=== PATIENT | female | born 1930 | race Caucasian/White ===

== ENCOUNTER 2018-03-07 09:46 | Emergency (ER) | payer MEDICARE ==
--- OUTSIDE RECORDS SUMMARY | 2018-03-07 09:58 | XMS REPORT ---
:1930 External Reference #:[id number] Author Organization [facility] Address [address] [place] [address] Phone [phone] Care Team Providers Name Role Phone Grady Rios M.D. Care Team Information [employer] Sewer [employer]oes Unavailable Grady Rios M.D. Primary Care Physician Unavailable Payers Type Date Identification Numbers Payment Provider Subscriber Medicare Primary Effective: Policy Number: [employer] [place] Fariba Patel 2014 [id number] PayID: [id number] [address] [facility] [place] [address] Medigap Part B Effective: Policy Number: [facility] Fariba Patel 2014 [id number] Care Options PayID: [id number] [place] [address] Problems Date Description Provider Status Onset: 04/12/2015 Benign essential hypertension Grady Rios M.D. Active Onset: 04/12/2015 Type 2 diabetes mellitus Grady Rios M.D. Active Onset: 04/12/2015 Hypothyroidism Grady Rios M.D. Active Onset: 04/12/2015 Allergic rhinitis Grady Rios M.D. Active Onset: 04/12/2015 Gastroesophageal reflux disease Grady Rios M.D. Active Onset: 11/08/2015 Chronic pulmonary heart disease Grady Rios M.D. Active Family History Date Family Member(s) Problem(s) Comments Father Diabetes Mellitus, II Mother Breast Cancer Social History Type Date Description Comments Marital Status Legal Status: 2007 Lives With Alone Occupation Retired Occupation Grounds Cleaner Cigarette Use Former Cigarette Smoker quit 30s 1ppd x 10 years ETOH Use Consumes liquor once daily Smoking Patient is a former smoker Allergies, Adverse Reactions, Alerts Date Description Reaction Status Severity Comments 04/12/2015 Sulfa hives active 04/12/2015 Penicillin hives active 04/12/2015 Erythromycin GI upset active 04/12/2015 Daypro hives active 04/12/2015 Neosporin hives active 04/12/2015 Bacitracin hives active 04/12/2015 Latex active unsure of reaction 07/05/2015 Contrast Dye hives active 06/13/2017 FD&C Red 40 Elder Urticaria active Medications Medication Date Status Form Strength Qnty SIG Indications Ordering Provider Torsemide Active Tablets 20mg 90tabs 2 by mouth I27.81 Grady 8 every day Colleen Rios I10 R60.9 Gabapentin 01/28/2018 Active Capsules 100mg 90caps 2 by mouth M54.2 Grady three Gabriel, times a M.DEva day Freestyle System 01/28/2018 Active Kit 1units test blood E11.9 Grady sugar once Gabriel, a day M.Domi dx:e11.9 Spironolactone 07/31/2017 Active Tablets 25mg 90tabs 1 by mouth Grady every day Colleen Rios Pen Leblanc 05/15/2016 Active Misc 31G X 5 1Box for use Grady 16" mm once daily Gabriel with Colleen murillo pen - dx: e11.9- last seen 07/31/17 Levemir 05/15/2016 Active Solution 100Unit 30ml Inject 30 Grady Flextouch Pen-Inject /ML Units AT Gabriel, Bedtime M.Domi Novofine 07/05/2015 Active Misc 32G X 6 120unit 1 unit E11.9 Grady mm s injection Gabriel, every day MBren Freestyle 07/05/2015 Active Misc 90units use once E11.9 Grady Lancets daily Colleen Rios Freestyle Lite 07/05/2015 Active Strip 100unit test every E11.9 Grady Test s day Colleen Rios Lancet Device 05/24/2015 Active Misc 15units 1 unit E11.9 Grady With Ejector Colleen Rios Aspirin Ec Active Tablets DR 81mg 1 by mouth Unknown every day Atenolol Active Tablets 50mg 90tabs 1 by mouth Grady every day Leslie Rios. Levothyroxine Active Tablets 112mcg 90tabs Take 1 E03.8 Grady Sodium Tablet By Saunemin, Mouth M.D. Every Day Tumeric Active 1000MG Unknown Latanoprost Active Solution 0.005% one drop Unknown each eye every day Tramadol HCL 10/03/2017 - Hx Tablets 50mg 30tabs take 1/2 M54.2 Benita L. 01/28/2018 to 2 Cirilo, tablets by M.D. mouth every 4 to 6 hours as needed for pain. Meloxicam 10/03/2017 - Hx Tablets 7.5mg 60tabs take 1 Benita L. 01/28/2018 tablet 1 Cirilo, to 2 times M.D. a day with food in your stomach. Occupational 10/03/2017 - Hx cervicalgi M54.2 Benita L. Therapy 01/28/2018 a, muscle Cirilo, spasm, and M.D. altered gait Ciprofloxacin 08/05/2017 - Hx Tablets 250mg 6tabs 1 tab Grady HCL 10/03/2017 twice a Saunemin, day x 3 M.D. 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 Walker With 3 05/16/2017 - Hx use as M15.0 Grady Wheels 10/03/2017 directed kathryn Rios M.DEva 05/16/17 Nitrofurantoin 08/24/2016 - Hx Capsules 100mg 14caps 2 by mouth Roxie Monohyd Macro 09/25/2016 daily x 7 Bonifacio, days MOBILE DEVICE DEVELOPER Ciprofloxacin 08/22/2016 - Hx Tablets 250mg 6tabs 1 tab N39.0 Grady HCL 08/29/2016 twice a Saunemin, day x 3 M.D. days Ranitidine HCL 06/20/2016 - Hx Tablets 150mg 60tabs 1 tab by K21.9 Grady 08/21/2016 mouth Saunemin, twice a M.D. day Levofloxacin 11/29/2015 - Hx Tablets 250mg 7tabs 1 by mouth J20.9 Nani 12/06/2015 daily for Brown, TOE CLOSING MACHINE TENDER 7 days Proair HFA 11/29/2015 - Hx Aerosol 108(90B 1units 2 puffs J20.9 [facility] 06/13/2017 ase) every 4 Saunemin, mcg/Act hours as M.D. needed for shortness of breath or wheezing Levofloxacin 09/07/2015 - Hx Tablets 250mg 14tabs 2 by mouth R05 Candie 11/08/2015 every day Jaylin, for 4 days MOBILE DEVICE DEVELOPER then 1 po qd for 6d Lasix 08/22/2015 - Hx Tablets 40mg 90tabs Take 1 I27.81 Grady 01/28/2018 Tablet By Saunemin, Mouth M.D. Every Day as Needed For Edema I10 R60.9 Ciprofloxacin HCL 06/27/2015 - Hx Tablets 250mg 6tabs 1 tab twice Grady 07/05/2015 a day x 3 , days M.D. Lasix 05/31/2015 - Hx Tablets 40mg 30tabs 1 tab by 782 Grady 06/07/2015 mouth every .3 Saunemin, day as M.D. needed edema Ibuprofen 05/24/2015 - Hx Tablets 600mg 30tabs 1 tab by 840 Grady 07/05/2015 mouth every .9 Saunemin, 6 hours as M.D. needed pain. take with food Cyclobenzaprine 05/24/2015 - Hx Tablets 5mg 30tabs 1/2-1 tablet 840 Grady HCL 07/05/2015 every night .9 Saunemin, at bedtime M.D. as needed Metformin HCL 05/18/2015 - Hx Tablets 1000mg 1 by mouth Hailey 05/24/2015 once a day Nathalia Hess Furosemide 05/18/2015 - Hx Tablets 20mg 7tabs 2 by mouth Hailey 05/24/2015 every day Nathalia Hess Atenolol 05/18/2015 - Hx Tablets 50mg 7tabs 1 po qd Hailey 05/24/2015 Nathalia Hess Atenolol-Chlorthal - Hx Tablets 50-25mg 90tabs 1 by mouth I10 Grady idone 05/15/2016 every day Saunemin, M.D. Metformin HCL - Hx Tablets 1000mg 1 by mouth Unknown 05/18/2015 twice a day Lantus Solostar - Hx Solution 100Unit/ 45ml 25 units E11 Grady 06/20/2016 Pen-Inject ML every day .9 Colleen Rios Flunisolide - Hx Solution 25mcg/Ac 2 sprays Unknown 05/24/2015 t each nostril (0.025%) qd Zantac 150 Maximum - Hx Tablets 150mg 2 by mouth K21 Grady Strength 06/20/2016 every day as .9 Gabriel needed Elliot.DEva Loratadine - Hx Tablets 10mg 90tabs take 1 Grady 06/20/2016 tablet by Saunemin, mouth every M.D. day for allergies Prednisone - Hx Tablets daily Unknown 07/05/2015 Spironolactone - Hx Tablets 50mg 1/2 by mouth Unknown 07/31/2017 every day Zyrtec Allergy - Hx Tablets 10mg 1 by mouth Unknown 01/28/2018 every day prn Zantac 150 Maximum - Hx Tablets 150mg 1 po bid Unknown Strength 05/16/2017 Advil - Hx Tablets 200mg prn Unknown 07/26/2016 Immunizations CPT Code Status Date Vaccine Lot # [id number] Given 07/31/2017 Pneumococcal Conjugate Vacc-13 [id number] 01946 Given 07/31/2017 High-Dose, Influenza Virus Vacccine-fluzone 65 and [id number] older 99584 Given 06/09/2016 Influenza Vac, Quadriv[place], [place] [address] Given 07/05/2015 High-Dose, Influenza Virus Vacccine-fluzone 65 and [id number] older 16206 Given 06/12/2013 High-Dose, Influenza Virus Vacccine-fluzone 65 and older 51254 Given 06/19/2012 High-Dose, Influenza Virus Vacccine-fluzone 65 and older 81800 Given 06/03/2002 Pneumococcal Immunization Vital Signs Date Vital Result Comment 02/19/2018 BP Systolic 132 mmHg BP Diastolic 62 mmHg Heart Rate 66 /min Body Temperature 97.2 F O2 % BldC Oximetry 98 % Height 61.5 inches 5'1.50" Weight 133.12 lb BMI (Body Mass Index) 24.7 kg/m2 01/28/2018 BP Systolic 130 mmHg BP Diastolic 70 mmHg Heart Rate 76 /min Body Temperature 98.0 F Respiratory Rate 18 /min Height 61.5 inches 5'1.50" Weight 128.00 lb BMI (Body Mass Index) 23.8 kg/m2 10/03/2017 BP Systolic 110 mmHg BP Diastolic 70 mmHg Heart Rate 60 /min Body Temperature 98.6 F Respiratory Rate 18 /min Height 61.5 inches 5'1.50" Weight 132.00 lb BMI (Body Mass Index) 24.5 kg/m2 07/31/2017 BP Systolic 110 mmHg BP Diastolic 70 mmHg Heart Rate 68 /min Body Temperature 98.2 F Respiratory Rate 16 /min Height 61.5 inches 5'1.50" Weight 128.00 lb BMI (Body Mass Index) 23.8 kg/m2 06/13/2017 BP Systolic 138 mmHg BP Diastolic 68 mmHg Heart Rate 72 /min Body Temperature 98.5 F Height 61.5 inches 5'1.50" Weight 130.00 lb BMI (Body Mass Index) 24.2 kg/m2 05/16/2017 BP Systolic 132 mmHg BP Diastolic 72 mmHg Heart Rate 56 /min Body Temperature 97.5 F Respiratory Rate 16 /min Height 61.5 inches 5'1.50" Weight 130.12 lb BMI (Body Mass Index) 24.2 kg/m2 01/23/2017 BP Systolic 110 mmHg BP Diastolic 50 mmHg Heart Rate 60 /min Body Temperature 99.3 F Respiratory Rate 16 /min Height 61.5 inches 5'1.50" Weight 127.50 lb BMI (Body Mass Index) 23.7 kg/m2 10/16/2016 BP Systolic 130 mmHg BP Diastolic 62 mmHg Heart Rate 72 /min Body Temperature 97.8 F Respiratory Rate 16 /min Height 61.5 inches 5'1.50" Weight 130.00 lb BMI (Body Mass Index) 24.2 kg/m2 08/29/2016 BP Systolic 128 mmHg BP Diastolic 60 mmHg Heart Rate 68 /min Body Temperature 97.0 F Respiratory Rate 16 /min Height 61.5 inches 5'1.50" Weight 132.00 lb BMI (Body Mass Index) 24.5 kg/m2 08/22/2016 BP Systolic 132 mmHg BP Diastolic 60 mmHg Heart Rate 66 /min Body Temperature 97.0 F Height 61.5 inches 5'1.50" Weight 132.12 lb BMI (Body Mass Index) 24.6 kg/m2 06/20/2016 BP Systolic 124 mmHg BP Diastolic 60 mmHg Heart Rate 72 /min Body Temperature 99.0 F Respiratory Rate 16 /min Height 61.5 inches 5'1.50" Weight 138.12 lb BMI (Body Mass Index) 25.7 kg/m2 05/15/2016 BP Systolic 134 mmHg BP Diastolic 70 mmHg Heart Rate 76 /min Body Temperature 97.8 F Respiratory Rate 16 /min Height 61.5 inches 5'1.50" Weight 136.00 lb BMI (Body Mass Index) 25.3 kg/m2 11/29/2015 BP Systolic 122 mmHg BP Diastolic 72 mmHg Heart Rate 64 /min Body Temperature 97.3 F Height 61.5 inches 5'1.50" Weight 130.00 lb BMI (Body Mass Index) 24.2 kg/m2 11/08/2015 BP Systolic 150 mmHg BP Diastolic 80 mmHg Heart Rate 64 /min Body Temperature 96.8 F Respiratory Rate 16 /min Height 61.5 inches 5'1.50" Weight 137.00 lb BMI (Body Mass Index) 25.5 kg/m2 09/07/2015 BP Systolic 138 mmHg BP Diastolic 78 mmHg Heart Rate 76 /min Body Temperature 98.0 F Respiratory Rate 18 /min Height 61.5 inches 5'1.50" Weight 133.00 lb BMI (Body Mass Index) 24.7 kg/m2 07/05/2015 BP Systolic 140 mmHg BP Diastolic 60 mmHg Heart Rate 64 /min Body Temperature 96.4 F Respiratory Rate 12 /min Height 61.5 inches 5'1.50" Weight 135.00 lb BMI (Body Mass Index) 25.1 kg/m2 05/24/2015 BP Systolic 140 mmHg BP Diastolic 80 mmHg Heart Rate 64 /min Body Temperature 99.2 F Respiratory Rate 16 /min Height 61.5 inches 5'1.50" Weight 144.00 lb BMI (Body Mass Index) 26.8 kg/m2 05/18/2015 BP Systolic 140 mmHg BP Diastolic 80 mmHg Heart Rate 78 /min Body Temperature 99.4 F Respiratory Rate 17 /min Height 61.5 inches 5'1.50" Weight 144.25 lb BMI (Body Mass Index) 26.8 kg/m2 04/12/2015 BP Systolic 170 mmHg BP Diastolic 80 mmHg Heart Rate 84 /min Body Temperature 98.3 F Respiratory Rate 16 /min Height 61.5 inches 5'1.50" Weight 135.00 lb BMI (Body Mass Index) 25.1 kg/m2 Results Test Date Test Result H/L Range Note Comprehensive Metabolic Prof 01/28/2018 Sodium 134 mEq/L 134-149 Potassium 4.5 mEq/L 3.6-5.5 Chloride 97 mEq/L 94-112 Carbon Dioxide 25 mEq/L 21-32 Glucose 182 mg/dL High 70-105 1 BUN 30 mg/dL High 6-26 2 Creatinine 0.7 mg/dL 0.6-1.4 BUN/Creat Ratio 42.9 CALC High 8.0-36.0 Calcium 9.5 mg/dL 8.6-10.2 Total Protein 6.5 g/dL 6.4-8.3 Albumin 4.4 g/dL 3.8-5.5 Globulin 2.1 g/dL 2.0-4.8 A/G Ratio 2.1 CALC 0.6-2.3 Alk. Phosphatase 91 U/L 30-110 Alt (SGPT) 24 U/L 7-35 Ast (Sgot) 23 U/L 5-34 Total Bilirubin 0.9 mg/dL 0.2-1.3 GFR Non- >60 ml/min/1.73m^ >=60 GFR >60 ml/min/1.73m^ >=60 Lipid Profile 01/28/2018 Cholesterol 136 mg/dL 120-200 Triglycerides 77 mg/dL 30-200 HDL Cholesterol 42 mg/dL 30-85 LDL (Calculated) 79 CALC 0-129 VLDL Cholesterol 15 mg/dL 0-50 HDL Risk Factor 3.2 CALC 0.0-4.4 Laboratory test finding 01/28/2018 TSH 1.31 mIU/L 0.50-6.00 Free T4 1.62 ng/dL High 0.75-1.54 3 CBC Electronic Fma 01/28/2018 WBC 11.8 x10^3/UL High 4.0-10.0 4 RBC 4.49 x10^6/UL 3.93-6.00 HGB 13.0 g/dL 12.0-17.0 HCT 39 % 35-50 MCV 86.9 fL 80.0-95.0 MCH 29.0 pg 25.6-32.2 MCHC 33.3 g/dL 32.2-36.0 RDW-CV 17.5 % High 11.6-14.4 PLT 138 x10^3/UL Low 163-400 5 MPV 11.8 fL 9.4-12.4 Zainab# 9.44 x10^3/UL High 1.56-6.13 Lymph# 1.26 x10^3/UL 1.18-3.74 [place]# 0.55 x10^3/UL 0.24-0.82 Eos # 0.1 x10^3/UL 0.0-0.5 Baso # 0.15 x10^3/UL High 0.01-0.08 Zainab% 79.9 % High 34.0-70.0 Lymph % 10.7 % Low 20.0-52.0 [place]% 4.7 % Low 5.0-12.0 Eos% 0.8 % 0.7-7.0 Baso% 1.3 % High 0.1-1.2 Laboratory test 01/28/2018 Hemoglobin A1c (Fma) 10.3 % High 4.1-5.7 finding Laboratory test 07/31/2017 Urine Culture And SEE RESULT BELOW 6 finding Sensitivities Complete Blood Count 07/31/2017 WBC 10.4 x10^3/UL High 3.6-9.6 7 RBC 4.68 x10^6/UL 3.90-5.70 HGB 13.6 g/dL 12.1-17.2 HCT 41 % 36-50 MCV 87.0 fL 82.2-97.4 MCH 29.1 pg 27.6-33.3 MCHC 33.5 g/dL 33.0-35.5 RDW 16.8 % High 11.6-13.7 PLT 170 x10^3/UL 150-400 MPV 9.0 fL 7.4-10.4 Gran # 8.1 x10^3/UL High 1.5-7.2 Lymph# 1.8 x10^3/UL 0.7-4.9 [place]# 0.5 x10^3/UL 0.1-0.9 Gran % 76.7 % High 42.2-75.2 Lymph % 18.3 % Low 20.5-51.1 [place]% 5.0 % 1.7-9.3 Comprehensive Metabolic Prof 07/31/2017 Sodium 142 mEq/L 134-149 Potassium 5.2 mEq/L 3.6-5.5 Chloride 110 mEq/L 94-112 Carbon Dioxide 24 mEq/L 21-32 Glucose 160 mg/dL High 70-105 BUN 39 mg/dL High 6-26 Creatinine 0.9 mg/dL 0.6-1.4 BUN/Creat Ratio 43.3 CALC High 8.0-36.0 Calcium 9.6 mg/dL 8.6-10.2 Total Protein 7.3 g/dL 6.4-8.3 Albumin 4.8 g/dL 3.8-5.5 Globulin 2.5 g/dL 2.0-4.8 A/G Ratio 1.9 CALC 0.6-2.3 Alk. Phosphatase 78 U/L 30-110 Alt (SGPT) 27 U/L 7-35 Ast (Sgot) 25 U/L 5-34 Total Bilirubin 0.7 mg/dL 0.2-1.3 GFR Non- >60 ml/min/1.73m^ >=60 GFR >60 ml/min/1.73m^ >=60 Lipid Profile 07/31/2017 Cholesterol 147 mg/dL 120-200 Triglycerides 100 mg/dL 30-200 HDL Cholesterol 49 mg/dL 30-85 LDL (Calculated) 78 CALC 0-129 VLDL Cholesterol 20 mg/dL 0-50 HDL Risk Factor 3.0 CALC 0.0-4.4 Laboratory test finding 07/31/2017 Hemoglobin A1c (Fma) 9.5 % % High 4.1- 5.7 Microalb, Random (Fma/CMC/CTX) 12.6 mg/L 0.5-37 Ua - Micro (Fma) 07/31/2017 Appearance CLEAR Color YELLOW Glucose, Urine (Fma/CMC/CTX) NEG Bilirubin NEG Ketones NEG SP Grav 1.015 Blood NEG PH 5.5 Protein NEG Urobil 1.0 Nitrite NEG Leukocytes (Fma/CMC/Centrex) TRACE Hyaline - /Lpf Granular - /Lpf WBC (Fma,Centrex) 2-3 RBC - Mucus - /Lpf Epith RARE /Lpf Bacteria TRACE /Hpf Amorphous - /Lpf Crystals, Fluid (Fma/CMC/CTX) - Z#Comments - Laboratory test 06/12/2017 Surgical Pathology SEE RESULT 8, 9 finding BELOW Laboratory test 01/23/2017 Hemoglobin A1c 9.2 % High 4.1-5.7 finding (Fma) Urine Culture 10/16/2016 Urine Culture, Final report 10, 11 Routine Routine Result 1 See Comment: 10, 12 Antimicrobial Susceptibility See Comment: 10, 13, 14 Comprehensive Metabolic Prof 10/16/2016 Sodium 139 mEq/L 134-149 Potassium 5.1 mEq/L 3.6-5.5 Chloride 104 mEq/L 94-112 Carbon Dioxide 25 mEq/L 21-32 Glucose 118 mg/dL High 70-105 15 BUN 25 mg/dL 6-26 Creatinine 0.9 mg/dL 0.6-1.4 BUN/Creat Ratio 27.8 CALC 8.0-36.0 Calcium 9.8 mg/dL 8.6-10.2 Total Protein 6.7 g/dL 6.4-8.3 Albumin 4.3 g/dL 3.8-5.5 Globulin 2.4 g/dL 2.0-4.8 A/G Ratio 1.8 CALC 0.6-2.3 Alk. Phosphatase 92 U/L 30-110 Alt (SGPT) 32 U/L 7-35 Ast (Sgot) 24 U/L 5-34 Total Bilirubin 0.5 mg/dL 0.2-1.3 GFR Non- >60 ml/min/1.73m^ >=60 GFR >60 ml/min/1.73m^ >=60 Lipid Profile 10/16/2016 Cholesterol 144 mg/dL 120-200 Triglycerides 91 mg/dL 30-200 HDL Cholesterol 41 mg/dL 30-85 LDL (Calculated) 85 CALC 0-129 VLDL Cholesterol 18 mg/dL 0-50 HDL Risk Factor 3.5 CALC 0.0-4.4 Complete Blood Count 10/16/2016 WBC 10.4 x10^3/UL High 3.6-9.6 RBC 4.53 x10^6/UL 3.90-5.70 HGB 12.4 g/dL 12.1-17.2 HCT 38 % 36-50 MCV 84.0 fL 82.2-97.4 MCH 27.5 pg Low 27.6-33.3 MCHC 32.9 g/dL Low 33.0-35.5 RDW 18.2 % High 11.6-13.7 PLT 205 x10^3/UL 150-400 MPV 8.4 fL 7.4-10.4 Gran # 8.5 x10^3/UL High 1.5-7.2 Lymph# 1.5 x10^3/UL 0.7-4.9 [place]# 0.4 x10^3/UL 0.1-0.9 Gran % 80.8 % High 42.2-75.2 Lymph % 15.0 % Low 20.5-51.1 [place]% 4.2 % 1.7-9.3 Laboratory test finding 10/16/2016 TSH 0.80 mIU/L 0.50-6.00 Free T4 1.71 ng/dL High 0.75-1.54 16 Laboratory test finding 10/16/2016 Hemoglobin A1c (Fma) 7.6 % High 4.1- 5.7 Microalb, Random (Fma/CMC/CTX) 53.4 mg/L High 0.5-37 Ua - Micro (Fma) 10/16/2016 Appearance clear Color yellow Glucose, Urine (Fma/CMC/CTX) neg Bilirubin neg Ketones neg SP Grav 1.010 Blood trace PH 5.5 Protein ssa neg Urobil 0.2 Nitrite pos Leukocytes (Fma/CMC/Centrex) large WBC (Fma,Centrex) >50 RBC 0-3 Epith few /Lpf Bacteria 3+ /Hpf Ict-Hemoccult (MCR)Fma Screeni 09/11/2016 Ict Hemoccult (1) 09/01/16 neg Ict Hemoccult-(2) 09/02/16 neg Ict-Hemoccult (3) 09/03/16 neg Ua - Micro (Fma) 08/29/2016 Appearance yellow Color clear Glucose, Urine (Fma/CMC/CTX) neg Bilirubin neg Ketones neg SP Grav 1.025 Blood neg PH 5.5 Protein neg Urobil 0.2 Nitrite neg Leukocytes (Fma/CMC/Centrex) neg Hyaline - /Lpf Granular - /Lpf RBC 0-1 Mucus (Fma/CBC/Centrex) - /Lpf Epith - /Lpf Bacteria rare /Hpf Amorphous (Fma/CMC/Centrex) - /Lpf Crystals, Fluid (Fma/CMC/CTX) - Z#Comments - Urine Culture Routine 08/22/2016 Urine Culture, Routine Final report 17 , 18 Result 1 No growth 17, 19 Ua - Micro (Fma) 08/22/2016 Appearance yellow Color clear Glucose, Urine (Fma/CMC/CTX) neg Bilirubin neg Ketones neg SP Grav 1.015 Blood neg PH 5.0 Protein neg Urobil 0.2 Nitrite pos Leukocytes (Fma/CMC/Centrex) small Hyaline - /Lpf Granular - /Lpf WBC (Fma,Centrex) 20-25 RBC 0-1 Mucus (Fma/CBC/Centrex) - /Lpf Epith few /Lpf Bacteria 4+ /Hpf Amorphous (Fma/CMC/Centrex) - /Lpf Crystals, Fluid (Fma/CMC/CTX) - Z#Comments - Comprehensive Metabolic Prof 05/15/2016 Sodium 140 mEq/L 134-149 Potassium 5.0 mEq/L 3.6-5.5 Chloride 100 mEq/L 94-112 Carbon Dioxide 28 mEq/L 21-32 Glucose 96 mg/dL 70-105 BUN 31 mg/dL High 6-26 20 Creatinine 0.9 mg/dL 0.6-1.4 BUN/Creat Ratio 34.4 CALC 8.0-36.0 Calcium 9.3 mg/dL 8.6-10.2 Total Protein 6.8 g/dL 6.4-8.3 Albumin 4.5 g/dL 3.8-5.5 Globulin 2.3 g/dL 2.0-4.8 A/G Ratio 2.0 CALC 0.6-2.3 Alk. Phosphatase 64 U/L 30-110 Alt (SGPT) 19 U/L 7-35 Ast (Sgot) 24 U/L 5-34 Total Bilirubin 0.7 mg/dL 0.2-1.3 GFR Non- >60 ml/min/1.73m^ >=60 GFR >60 ml/min/1.73m^ >=60 Lipid Profile 05/15/2016 Cholesterol 157 mg/dL 120-200 Triglycerides 111 mg/dL 30-200 HDL Cholesterol 47 mg/dL 30-85 LDL (Calculated) 88 CALC 0-129 VLDL Cholesterol 22 mg/dL 0-50 HDL Risk Factor 3.3 CALC 0.0-4.4 Complete Blood Count 05/15/2016 WBC 10.6 x10^3/UL High 3.6-9.6 21 RBC 4.46 x10^6/UL 3.90-5.70 HGB 13.2 g/dL 12.1-17.2 HCT 39 % 36-50 MCV 87.0 fL 82.2-97.4 MCH 29.6 pg 27.6-33.3 MCHC 34.0 g/dL 33.0-35.5 RDW 18.0 % High 11.6-13.7 22 PLT 180 x10^3/UL 150-400 MPV 8.4 fL 7.4-10.4 Gran # 8.7 x10^3/UL High 1.5-7.2 23 Lymph# 1.5 x10^3/UL 0.7-4.9 [place]# 0.4 x10^3/UL 0.1-0.9 Gran % 81.1 % High 42.2-75.2 24 Lymph % 14.8 % Low 20.5-51.1 25 [place]% 4.1 % 1.7-9.3 Laboratory test finding 05/15/2016 Free T4 1.51 ng/dL 0.75-1.54 26 TSH 2.07 mIU/L 0.50-6.00 Laboratory test finding 05/15/2016 Hemoglobin A1c (Fma) 7.7 % High 4.1- 5.7 Basic Metabolic Panel 04/27/2016 Sodium 137 mmol/L 133-145 Potassium 4.3 mmol/L 3.5-5.0 Chloride 100 mmol/L Low 101-111 Co2 Carbon Dioxide 31 mmol/L 22-32 Anion Gap 6 mmol/L 2-11 Glucose 126 mg/dL High 70-100 Blood Urea Nitrogen 27 mg/dL High 6-24 Creatinine 0.86 mg/dL 0.51-0.95 BUN/Creatinine Ratio 31.4 High 8-20 Calcium 9.8 mg/dL 8.6-10.3 Egfr Non- 62.9 >60 Egfr 80.8 >60 27 Retic Count 04/16/2016 Retic Count 2.3 % High 0.5-1.5 Corrected Retic Count 2.0 % High 0.5-1.5 Maturation Factor Retic 1.5 Retic Index 1.30 Mean Retic Volume 107.9 Immature Retic Fraction 0.58 RBC Retic Count 4.59 10^6/uL Low 4.6-6.2 Hematocrit for Retic CNT 39 % 35-47 Laboratory test finding 04/16/2016 Hematocrit 39 % 35-47 Basic Metabolic Panel 04/16/2016 Sodium 138 mmol/L 133-145 Potassium 5.4 mmol/L High 3.5-5.0 Chloride 100 mmol/L Low 101-111 Co2 Carbon Dioxide 32 mmol/L 22-32 Anion Gap 6 mmol/L 2-11 Glucose 177 mg/dL High 70-100 Blood Urea Nitrogen 31 mg/dL High 6-24 Creatinine 0.96 mg/dL High 0.51-0.95 BUN/Creatinine Ratio 32.3 High 8-20 Calcium 9.6 mg/dL 8.6-10.3 Egfr Non- 55.4 >60 Egfr 71.2 >60 28 Iron & Iron Binding Capacity 04/16/2016 Iron 91 g/dL 50-212 Unsaturated Iron Binding 274 g/dL Total Iron Binding Capacity 365 g/dL 250-450 % Iron Saturation 25 % 15-55 Laboratory test finding 04/16/2016 Ferritin 60.9 ng/mL 11-307 NT-Pro B-Type Natriuretic Pep 1003 pg/mL <=263 29 Comprehensive Metabolic Prof 11/08/2015 Sodium 139 mEq/L 134-149 Potassium 3.8 mEq/L 3.6-5.5 Chloride 97 mEq/L 94-112 Carbon Dioxide 32 mEq/L 21-32 Glucose 143 mg/dL High 70-105 BUN 26 mg/dL 6-26 Creatinine 0.8 mg/dL 0.6-1.4 BUN/Creat Ratio 32.5 CALC 8.0-36.0 Calcium 10.2 mg/dL 8.6-10.2 Total Protein 8.0 g/dL 6.4-8.3 Albumin 4.9 g/dL 3.8-5.5 Globulin 3.1 g/dL 2.0-4.8 A/G Ratio 1.6 CALC 0.6-2.3 Alk. Phosphatase 77 U/L 30-110 Alt (SGPT) 29 U/L 7-35 Ast (Sgot) 30 U/L 5-34 Total Bilirubin 0.7 mg/dL 0.2-1.3 GFR Non- >60 ml/min/1.73m^ >=60 GFR >60 ml/min/1.73m^ >=60 Lipid Profile 11/08/2015 Cholesterol 228 mg/dL High 120-200 Triglycerides 138 mg/dL 30-200 HDL Cholesterol 62 mg/dL 30-85 LDL (Calculated) 138 CALC High 0-129 VLDL Cholesterol 28 mg/dL 0-50 HDL Risk Factor 3.7 CALC 0.0-4.4 Complete Blood Count 11/08/2015 WBC 11.6 x10^3/UL High 3.6-9.6 30 RBC 5.37 x10^6/UL 3.90-5.70 HGB 15.3 g/dL 12.1-17.2 HCT 47 % 36-50 MCV 88.0 fL 82.2-97.4 MCH 28.6 pg 27.6-33.3 MCHC 32.6 g/dL Low 33.0-35.5 31 RDW 16.7 % High 11.6-13.7 PLT 214 x10^3/UL 150-400 MPV 8.7 fL 7.4-10.4 Gran # 9.1 x10^3/UL High 1.5-7.2 Lymph# 2.0 x10^3/UL 0.7-4.9 [place]# 0.5 x10^3/UL 0.1-0.9 Gran % 77.9 % High 42.2-75.2 32 Lymph % 17.7 % Low 20.5-51.1 33 [place]% 4.4 % 1.7-9.3 Laboratory test finding 11/08/2015 Free T4 1.83 ng/dL High 0.75-1.54 34 TSH 1.53 mIU/L 0.50-6.00 Laboratory test 11/08/2015 Hemoglobin A1c (Fma) 8.2 % High 4.1-5.7 finding Urine Culture 06/21/2015 Urine Culture, Final report 35, 36 Routine Routine Result 1 See Comment: 35, 37 Antimicrobial Susceptibility See Comment: 35, 38 Laboratory test finding 06/21/2015 TSH 1.37 mIU/L 0.50-6.00 Free T4 1.61 ng/dL High 0.75-1.54 39 Comprehensive Metabolic Prof 06/21/2015 Sodium 135 mEq/L 134-149 Potassium 4.1 mEq/L 3.6-5.5 Chloride 93 mEq/L Low 94-112 40 Carbon Dioxide 27 mEq/L 21-32 Glucose 187 mg/dL High 70-105 41 BUN 21 mg/dL 6-26 Creatinine 0.7 mg/dL 0.6-1.4 BUN/Creat Ratio 30.0 CALC 8.0-36.0 Calcium 10.0 mg/dL 8.6-10.2 Total Protein 7.1 g/dL 6.4-8.3 Albumin 4.5 g/dL 3.8-5.5 Globulin 2.6 g/dL 2.0-4.8 A/G Ratio 1.7 CALC 0.6-2.3 Alk. Phosphatase 64 U/L 30-110 Alt (SGPT) 35 U/L 7-35 Ast (Sgot) 25 U/L 5-34 Total Bilirubin 0.6 mg/dL 0.2-1.3 GFR Non- >60 ml/min/1.73m^ >=60 GFR >60 ml/min/1.73m^ >=60 Laboratory test finding 06/21/2015 Hemoglobin A1c (Fma/CMC,CX) 7.3 % High 4.1-5.7 Ua - Micro (Fma) 06/21/2015 Appearance CLEAR Color YELLOW Glucose, Urine (Fma/CMC/CTX) NEG Bilirubin NEG Ketones NEG SP Grav 1.010 Blood NEG PH 6.0 Protein NEG Urobil 0.2 Nitrite POSITIVE Leukocytes (Fma/CMC/Centrex) SMALL Hyaline - /Lpf Granular - /Lpf WBC (Fma,Centrex) 10-13 RBC 0-1 Mucus (Fma/CBC/Centrex) - /Lpf Epith RARE /Lpf Bacteria 3+ /Hpf Amorphous (Fma/CMC/Centrex) - /Lpf Crystals, Fluid (Fma/CMC/CTX) - Z#Comments - Laboratory test finding 06/21/2015 Brain Natural 75.4 pg/mL <100 Peptide Complete Blood Count 06/21/2015 WBC 15.1 x10^3/UL High 3.6-9.6 42 RBC 5.57 x10^6/UL 3.90-5.70 HGB 15.8 g/dL 12.1-17.2 HCT 49 % 36-50 MCV 87.0 fL 82.2-97.4 MCH 28.4 pg 27.6-33.3 MCHC 32.6 g/dL Low 33.0-35.5 RDW 17.0 % High 11.6-13.7 PLT 186 x10^3/UL 150-400 MPV 8.3 fL 7.4-10.4 Gran # 12.1 x10^3/UL High 1.5-7.2 Lymph# 2.1 x10^3/UL 0.7-4.9 [place]# 0.9 x10^3/UL 0.1-0.9 Gran % 79.7 % High 42.2-75.2 Lymph % 14.2 % Low 20.5-51.1 [place]% 6.1 % 1.7-9.3 Lipid Profile 06/21/2015 Cholesterol 214 mg/dL High 120-200 Triglycerides 166 mg/dL 30-200 HDL Cholesterol 48 mg/dL 30-85 LDL (Calculated) 133 CALC High 0-129 VLDL Cholesterol 33 mg/dL 0-50 HDL Risk Factor 4.5 CALC High 0.0-4.4 Laboratory test finding 05/18/2015 Hemoglobin A1c (a/CMC,CX) 6.6 % % High 4.1-5.7 CBC Electronic ([facility]) 05/18/2015 WBC 11.7 High 3.6-9.6 RBC 4.51 3.90-5.70 Hemoglobin (Fma/CMC/CTX) 13.0 g/dL 12.1 - 17.2 Hematocrit (Fma/CMC/CTX) 39.5 % 36.1 - 50.3 Platelets 198 10^3/ul 150-400 Lymph% 15.3 % Low 17.0-48.0 Mixed% 3.7 Neutrophils % 81.0 Mean Corpuscular Vol 88 82.2-97.4 Mean Corpuscular Hemoglobin 28.7 27.6-33.3 Mean Corpuscular Hemo Concen 32.8 32.0-36.0 RDW 17.2 High 11.6-13.7 Mean Platelet Volume 7.6 5.5-11.0 Laboratory test finding 05/18/2015 Brain Natural Peptide 158 pg/mL High < 100 Laboratory test finding 05/18/2015 TSH 1.30 mIU/L 0.50-6.00 Free T4 1.70 ng/dL High 0.75-1.54 43 Lipid Profile 05/18/2015 Cholesterol 179 mg/dL 120-200 Triglycerides 136 mg/dL 30-200 HDL Cholesterol 54 mg/dL 30-85 LDL (Calculated) 98 CALC 0-129 VLDL Cholesterol 27 mg/dL 0-50 HDL Risk Factor 3.3 CALC 0.0-4.4 Comprehensive Metabolic Prof 05/18/2015 Sodium 140 mEq/L 134-149 Potassium 4.1 mEq/L 3.6-5.5 Chloride 101 mEq/L 94-112 Carbon Dioxide 29 mEq/L 21-32 Glucose 115 mg/dL High 70-105 BUN 19 mg/dL 6-26 Creatinine 0.7 mg/dL 0.6-1.4 BUN/Creat Ratio 27.1 CALC 8.0-36.0 Calcium 9.4 mg/dL 8.6-10.2 Total Protein 7.0 g/dL 6.4-8.3 Albumin 4.9 g/dL 3.8-5.5 Globulin 2.1 g/dL 2.0-4.8 A/G Ratio 2.3 CALC 0.6-2.3 Alk. Phosphatase 62 U/L 30-110 Alt (SGPT) 64 U/L High 7-35 Ast (Sgot) 33 U/L 5-34 Total Bilirubin 0.6 mg/dL 0.2-1.3 GFR Non- >60 ml/min/1.73m^ >=60 GFR >60 ml/min/1.73m^ >=60 1 consistent w/ previous results 2 consistent w/ previous results 3 RESULTS VERIFIED BY REPEAT ANALYSIS 4 RESULTS VERIFIED BY REPEAT ANALYSIS 5 RESULTS VERIFIED BY REPEAT ANALYSIS 6 SEE RESULT BELOW Name: FARIBA PATEL Asaf : [address]: Grady Rios MD Acct: [id number] Unit: [id number] AGE: 87 Location: [facility] Re07/31/17 SEX: F Status: REG REF SPEC: [id number] HILDA: 07/31/17 [facility] DR: Grady Rios MD REQ: [id number] RECD: 07/31/17 STATUS: COMP _ SOURCE: URINE SPDESC: ORDERED: Urine Culture COMMENTS: 1[facility] [id number] Urine Source: Random Procedure Result Reported Site Urine Culture Final 08/02/17821 ML Organism 1 ESCHERICHIA COLI [place] Count >100,000 (Many) CFU/ML 1. ESCHERICHIA COLI M.I.C. RX --------- ------ Ampicillin <=2 S Cefazolin <=4 S Cefepime <=1 S Ceftriaxone <=1 S Ciprofloxacin <=0.25 S Gentamicin <=1 S Levofloxacin 0.5 S Meropenem <=0.25 S Nitrofurantoin <=16 S Tetracycline <=1 S Pipercillin/Tazobactam <=4 S Trimethoprim/Sulfamethoxazole <=20 S Amoxicillin/Clavulanic Acid <=2 S Aztreonam <=1 S Contact the Microbiology Department for any additional antibiotic reporting. * ML - MAIN LAB ([facility]) . END OF REPORT * ML=Testing performed at Main Lab DEPARTMENT OF PATHOLOGY, [address] [place] [address] Zachary Soto M.D. Director [facility] # [id number] 7 consistent w/ previous results 8 [id number] SEE RESULT BELOW Name: FARIBA PATEL : [address]: Grady Rios MD Acct: [id number] Unit: [id number] AGE: 87 Location: [facility] Re06/12/17 SEX: F Status: REG REF SPEC: [id number] HILDA: 06/12/17 [facility] [address]: Deyanira Garcia MD REQ: [id number] RECD: 06/12/17 STATUS: MARS WHITT DR: Grady Rios MD _ ORDERED: LEVEL 4 COMMENTS: [id number] FINAL DIAGNOSIS Breast, left, ultrasound-guided core biopsy: -- Benign breast tissue with portions of fibrous cyst wall and acute and chronically inflamed inspissated secretions with associated dystrophic calcifications. -- No evidence of neoplasia identified. PRE-OPERATIVE DIAGNOSIS Left breast 1 o'clock retro-areolar mass measuring 0.6 x 0.6 x 0.5 cm. GROSS DESCRIPTION The specimen is received in formalin labeled, US Guided Left Breast Biopsy, and consists of a 1.4 x 0.7 x 0.1 cm aggregate of yellow-white fibrofatty soft tissue fragments, which is filtered and entirely submitted in one cassette. Signed (signature on file) Zachary Soto MD 1022 END OF REPORT * ML=Testing performed at Main Lab DEPARTMENT OF PATHOLOGY, [address] [place] [address] Zachary Soto M.D. Director [facility] # [id number] 10 SRC:urine 1 finney top 11 Source of Specimen: urine 1 finney top 12 Source of Specimen: urine 1 finney top Escherichia coli, identified by an automated biochemical system. Greater than 100,000 colony forming units per mL 13 Source of Specimen: urine 1 finney top S=Susceptible; I=Intermediate; R=Resistant P=Positive; N=Negative MICS are expressed in micrograms per mL Antibiotic RSLT#1 RSLT#2 RSLT#3 RSLT#4 Amoxicillin/Clavulanic Acid S Ampicillin S Cefepime S Ceftriaxone S Cefuroxime S Cephalothin I Ciprofloxacin S Ertapenem S Gentamicin S Imipenem S Levofloxacin S Nitrofurantoin S Piperacillin S Tetracycline S Tobramycin S Trimethoprim/Sulfa S 14 10/19/16 (SatOct 19) 12:09 PM GRADY RIOS patient asymptomatic 15 NON-FASTING 16 RESULTS VERIFIED BY REPEAT ANALYSIS 17 SRC:urine 1 urine finney top 18 Source of Specimen: urine 1 urine finney top 19 Source of Specimen: urine 1 urine finney top 20 RESULTS VERIFIED BY REPEAT ANALYSIS 21 RESULTS VERIFIED BY REPEAT ANALYSIS 22 RESULTS VERIFIED BY REPEAT ANALYSIS 23 RESULTS VERIFIED BY REPEAT ANALYSIS 24 RESULTS VERIFIED BY REPEAT ANALYSIS 25 RESULTS VERIFIED BY REPEAT ANALYSIS 26 FASTING 27 Because ethnic data is not always readily available, this report includes an eGFR for both -Americans and non- Americans. The National Kidney Disease Education Program (NKDEP) does not endorse the use of the MDRD equation for patients that are not between the ages of 18 and 70, are , have extremes of body size, muscle mass, or nutritional status, or are non- or non-. According to the National Kidney Foundation, irrespective of diagnosis, the stage of the disease is based on the level of kidney function: Stage Description GFR(mL/min/1.73 m(2)) 1 Kidney damage with normal or decreased GFR 90 2 Kidney damage with mild decrease in GFR 60-89 3 Moderate decrease in GFR 30-59 4 Severe decrease in GFR 15-29 5 Kidney failure <15 (or dialysis) 28 Because ethnic data is not always readily available, this report includes an eGFR for both -Americans and non- Americans. The National Kidney Disease Education Program (NKDEP) does not endorse the use of the MDRD equation for patients that are not between the ages of 18 and 70, are , have extremes of body size, muscle mass, or nutritional status, or are non- or non-. According to the National Kidney Foundation, irrespective of diagnosis, the stage of the disease is based on the level of kidney function: Stage Description GFR(mL/min/1.73 m(2)) 1 Kidney damage with normal or decreased GFR 90 2 Kidney damage with mild decrease in GFR 60-89 3 Moderate decrease in GFR 30-59 4 Severe decrease in GFR 15-29 5 Kidney failure <15 (or dialysis) 29 NT-proBNP values less than 300 pg/mL have a 99% negative predictive value for excluding acute congestive heart failure. A cutoff of 1200 pg/mL for patients with an eGFR<60 yields a diagnostic sensitivity and specificity of 89% and 72% for acute congestive heart failure. A diagnostic NT-proBNP cutoff of 1800 pg/mL has been suggested in adults over 75 years of age in the absence of renal failure. Test Performed by: [address] [address] [employer] Developer: Arjun Guevara II, M.D., Ph.D. 30 consistent w/ previous results 31 consistent w/ previous results 32 consistent w/ previous results 33 consistent w/ previous results 34 RESULTS VERIFIED BY REPEAT ANALYSIS 35 SRC:URINE URINE IN VACUTAI NER 36 Source of Specimen: URINE URINE IN VACUTAI 37 Source of Specimen: URINE URINE IN VACUTAI Escherichia coli, identified by an automated biochemical system. Greater than 100,000 colony forming units per mL 38 Source of Specimen: URINE URINE IN VACUTAI S=Susceptible; I=Intermediate; R=Resistant P=Positive; N=Negative MICS are expressed in micrograms per mL Antibiotic RSLT#1 RSLT#2 RSLT#3 RSLT#4 Amoxicillin/Clavulanic Acid S Ampicillin S Cefepime S Ceftriaxone S Cefuroxime S Cephalothin S Ciprofloxacin S ESBL N Ertapenem S Gentamicin S Imipenem S Levofloxacin S Nitrofurantoin S Piperacillin S Tetracycline S Tobramycin S Trimethoprim/Sulfa S 39 RESULTS VERIFIED BY REPEAT ANALYSIS 40 RESULTS VERIFIED BY REPEAT ANALYSIS 41 consistent w/ previous results 42 RESULTS VERIFIED BY REPEAT ANALYSIS 43 RESULTS VERIFIED BY REPEAT ANALYSIS Procedures Date CPT Code Description Status Comment 02/05/2018 Mammogram Completed 09/02/2017 Diabetic Retinal Eye Exam Completed 06/13/2017 Mammogram Completed 06/12/2017 Mammogram Completed 05/28/2017 Mammogram Completed 01/23/2017 03851 Finger Or Heel Stick Completed 10/23/2016 Diabetic Foot Exam Completed Dr Isbell 09/20/2016 Mammogram Completed 05/04/2015 Mammogram Completed 09/02/2005 Colonoscopy Completed Encounters Type Date Location Provider CPT E/M Dx Office Visit 01/28/2018 9:30a [facility] Grady Rios M.D. 86435 M54.2 E11.9 M15.0 I10 I27.81 Z12.31 Office Visit 10/03/2017 9:40a [facility] Benita Kerr M.D. 21900 M54.2 M62.830 Office Visit 07/31/2017 10:00a [facility] Grady Rios M.D. 83008 Z23 E11.9 I10 I27.81 R30.0 Z23 Office Visit 06/13/2017 3:45p [facility] Che Landon, KIZZY 71496 M25.571 L03.115 Office Visit 05/16/2017 8:20a [facility] Grady Rios M.D. 39037 N63 E11.9 I10 M15.0 Office Visit 01/23/2017 11:40a [facility] Grady Rios M.D. 96142 E11.9 Office Visit 10/16/2016 8:00a [facility] Grady Rios M.D. 80282 E11.9 I27.81 I10 E03.8 R19.09 Office Visit 08/29/2016 10:00a [facility] Roxie ValdovinosFLACO 43208 N39.0 R10.31 R19.09 Office Visit 08/22/2016 11:30a [facility] Grady Rios M.D. 96277 N39.0 Office Visit 06/20/2016 2:20p [facility] Grady Rios M.D. 78763 K21.9 I27.81 E11.9 I10 Office Visit 05/15/2016 8:00a [facility] Grady Rios M.D. 76233 E11.9 I27.81 I10 E03.8 Office Visit 11/29/2015 9:15a [place] [address] J20.9 Office Visit 11/08/2015 8:00a [facility] Office Grady Rios M.D. 24759 E11.9 I27.81 I10 E03.8 Office Visit 09/07/2015 1:45p Main Office CandieFLACO Escalona [address]45[address] R05 Office Visit 05/24/2015 11:20a [facility] Office Grady Rios M.D. 31946 782.3 401.1 250.00 244.8 840.9 Office Visit 05/18/2015 1:00p Main Office Lynda Lynne-Cara 56271 782.3 250.00 401.1 244.8 840.9 Office Visit 04/12/2015 10:50a Main Office Grady Rios M.D. 74114 401.1 250.00 244.8 477.9 530.81 V76.12 787.91 Plan of Care 02/19/2018 - Grady Rios M.D.E11.9 Type 2 diabetes mellitus without complicationsNew Labs:Hemoglobin A1c (Fma)Comments:Recommend yearly diabetic eye and foot exams, and check on blood pressure periodically. Goal blood sugar is less than 140 in the morning or A1c less than 7. Recommend monitoring portion size, decreased carbohydrate intake (breads, pasta, rice, candy, desserts, and sweetened beverages/alcohol) and routine daily exercise. increase to 35 units at bedtimeFollow up:4-5 moM54.2 CervicalgiaComments: increase to 2 tabs TID, 3 tabs at bedtime if toleratecall if effective to change gwogpjstbbacD72.0 Primary generalized (osteo)wbsnlsxytK65 Essential ( primary) hypertensionComments:The patient will continue to monitor blood pressure and let me know the blood pressure results if there are readings persistently above 140/80. Goal blood pressure is less than 140/80. Recommend low salt/cardiac diet and routine exercise.I27.81 Cor pulmonale (chronic) Comments:Following Dr Jones; monitor weight, more than 5 pounds take more toresidmide low salt dietD72.829 Elevated white blood cell count, unspecifiedComments:to see heme next weekAllComments:~B_~U_Medication Management ~b_~u_ Patient Understands medications she's taking? Yes No Are there Barriers to Adherence? Yes No Has the patient been asked about herbal supplements and therapies, and OTC meds? Yes No
[2018-03-07 10:25] LABS: Hematocrit 38 % (35-47); Hemoglobin 12.5 g/dl (12.0-16.0); Mean Corpuscular HGB Conc 33 g/dl (31-36); Mean Corpuscular Hemoglobin 29 pg (27-31); Mean Corpuscular Volume 87 fL (80-97); Mean Platelet Volume 9.3 um3 (7.4-10.4); Platelet Count 113 10^3/ul (150-450); Red Blood Count 4.34 10^6/ul (4.00-5.40); Red Cell Distribution Width 18 % (10.5-15); White Blood Count 12.2 10^3/ul (3.5-10.8)
--- NOTE | 2018-03-07 10:38 | RAD ---
INDICATION: Short of breath COMPARISON: August 15, 2015 TECHNIQUE: An AP portable view obtained at 1025 hours is submitted. FINDINGS: Bones/Soft Tissues: There are no acute bony findings. Cardiomediastinal: The cardiomediastinal silhouette is normal. Lungs: There are no infiltrates. Pleura: There are no pleural effusions. Other: None IMPRESSION: NO ACTIVE DISEASE.
[2018-03-07 10:46] LABS: EGFR Non-African American 53.9 (>60)
[2018-03-07 11:21] LABS: ABS Basophils 0.1 10^3/ul (0-0.2); ABS Eosinophils 0.1 10^3/ul (0-0.6); ABS Lymphocytes 0.9 10^3/ul (1.0-4.8); ABS Monocytes 0.4 10^3/ul (0-0.8); ABS Neutrophils 10.7 10^3/ul (1.5-7.7); ABS Nucleated RBC 0 10^3/ul; Eosinophil % 0.5 % (0-6); Lymphocyte % 7.2 % (25-47); Nucleated Red Blood Cells % 0.3
[2018-03-07] MEDS ORDERED: Iodixanol* (CONTRAST) 320 MG/ML 100 ML SDV IV ONE (11:57)
[2018-03-07] MEDS ORDERED: diPHENhydraMINE IV* 50 MG/ML 1 ml VIAL (BENADRYL) SLOW PUSH ONE (12:40)
--- NOTE | 2018-03-07 13:51 | RAD ---
INDICATION: Shortness of breath, leukocytosis and elevated d-dimer COMPARISON: CTA of the chest June 03, 2015 TECHNIQUE: Axial source images were acquired following the administration of 65 mL Visipaque [address] angiographic technique. Coronal and sagittal reconstructed images were constructed and reviewed. FINDINGS: Unless otherwise specified comparisons below reference T June 03, 2015 CTA of the chest. There there are no filling defects in the pulmonary arteries to indicate acute pulmonary embolic disease. The right mainstem pulmonary artery is top normal in diameter measuring just under 3 cm. Contrast injected into the central venous system is seen refluxing into the hepatic veins indicating a degree of At the posterior dependent margin of the left upper lobe there is a pleural-based density measuring up to 8 mm in thickness corresponding to a nodule seen on the previous CTA and therefore likely represents scarring. There are no focal infiltrates or effusions. There are no pulmonary parenchymal masses. The heart is normal in size. There is no evidence of pericardial effusion. There is no evidence of aortic aneurysm or dissection. There is coarse calcification of the arch of the aorta, aortic ring and descending thoracic aorta. There is no mediastinal, hilar, or axillary lymphadenopathy. Multilevel degenerative changes of the thoracic spine includes loss of intervertebral disc height. The visualized spleen is top normal measuring up to 12.2 cm in greatest axial dimension. IMPRESSION: 1. No CT of evidence of pulmonary embolism or other acute thoracic abnormality. 2. There is moderate cardiomegaly and a top normal right mainstem pulmonary artery measuring just under 3 cm in diameter. Furthermore, contrast injected into the venous system is seen refluxing into the hepatic veins. Please correlate to right heart insufficiency and/or pulmonary hypertension. 3. Mild splenomegaly of uncertain clinical significance.
[2018-03-07 15:52] VITALS: BP 142/58
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
== END 2018-03-07 15:50 | disposition home or self-care (01) ==
LOC: ED 09:46
DX: R06.02 Shortness of breath (principal); I11.0 Hypertensive heart disease with heart failure; I50.9 Heart failure, unspecified; E11.9 Type 2 diabetes mellitus without complications; I27.20 Pulmonary hypertension, unspecified; Z79.899 Other long term (current) drug therapy; Z88.2 Allergy status to sulfonamides; Z88.0 Allergy status to penicillin; Z88.1 Allergy status to other antibiotic agents
CPT/HCPCS: 36415; 71045; 71275; 80053; 83605; 83880; 84484; 85025; 85379; 93005; 96374; 99283; Q9967

== ENCOUNTER 2020-03-29 17:24 | Inpatient (IN) ==
[2020-03-29 19:23] LABS: Hematocrit 29 % (35-47); Hemoglobin 9.6 g/dL (12.0-16.0); Mean Corpuscular HGB Conc 33 g/dL (31-36); Mean Corpuscular Hemoglobin 28 pg (27-31); Mean Corpuscular Volume 84 fL (80-97); Mean Platelet Volume 9.5 fL (7.4-10.4); Platelet Count 97 10^3/uL (150-450); Red Blood Count 3.47 10^6 /uL (3.70-4.87); Red Cell Distribution Width 20 % (10-15); White Blood Count 8.9 10^3/uL (3.5-10.8)
[2020-03-29] MEDS ORDERED: NS 0.9% 1000 ml BAG 1,000 ML IV ONE (19:24)
[2020-03-29 19:29] LABS: Albumin 3.6 g/dL (3.2-5.2); Albumin/Globulin Ratio 1.2 (1-3); BUN/Creatinine Ratio 40.2 (8-20); Calcium 8.6 mg/dL (8.6-10.3); EGFR African American 61.9 (>60); EGFR Non-African American 51.1 (>60); Globulin 3.1 g/dL (2-4); Magnesium 1.7 mg/dL (1.9-2.7); Potassium 3.4 mmol/L (3.5-5.0); Total Bilirubin 0.9 mg/dL (0.2-1.0); Total Protein 6.7 g/dL (6.4-8.9)
[2020-03-29 19:30] LABS: Troponin I 0.02 ng/mL (<0.03)
[2020-03-29] MEDS ORDERED: Magnesium Sulfate 2 gm BAG 2 GM/50 ML BAG IVPB ONE (19:43)
[2020-03-29 19:57] LABS: ABS Basophils 0.1 10^3/ul (0-0.2); ABS Eosinophils 0.2 10^3/ul (0-0.6); ABS Lymphocytes 0.6 10^3/ul (1.0-4.8); ABS Monocytes 0.5 10^3/ul (0-0.8); ABS Neutrophils 7.6 10^3/ul (1.5-7.7); ABS Nucleated RBC 0.1 10^3/ul; Eosinophil % 1.8 %; Lymphocyte % 6.8 %; Nucleated Red Blood Cells % 0.8
[2020-03-29 20:10] LABS: TSH Ultra Thyroid Stim Horm 2.41 mcIU/mL (0.34-5.60)
[2020-03-29 21:53] LABS: Urine Appearance Cloudy; Urine Bilirubin Negative (Negative); Urine Blood Negative (Negative); Urine Color Yellow; Urine Glucose Negative (Negative); Urine Ketones Negative (Negative); Urine Nitrite Positive (Negative); Urine Protein Negative (Negative); Urine Specific Gravity 1.009 (1.010-1.030); Urine Urobilinogen Negative (Negative)
[2020-03-29 21:55] LABS: Urine Bacteria 1+ (Absent); Urine Red Blood Cell Trace(0-2/hpf) (Absent); Urine Squamous Epithelial Cell Present (Absent); Urine White Blood Cell 3+(>20/hpf) (Absent)
[2020-03-30] MEDS ORDERED: Dextrose 50% Syringe 50 ml 25 GM/50 ML SYRINGE IV PUSH PRN (00:27)
[2020-03-30] MEDS ORDERED: Potassium Chlor 10 meq TAB PO ONE (00:29)
[2020-03-30] MEDS ORDERED: cefTRIAXone 1 gm/50 mL NS BAG 1 GM/50 ML BAG IVPB SCH (07:30)
[2020-03-30] MEDS: Insulin GLARGINE 100 un/ml 10 ml VIAL SUBCUT SCH (07:50)
[2020-03-30 08:22] LABS: Anion Gap 9 mmol/L (2-11); BUN/Creatinine Ratio 34.7 (8-20); Blood Urea Nitrogen 35 mg/dL (6-24); CO2 Carbon Dioxide 30 mmol/L (22-32); Calcium 8.4 mg/dL (8.6-10.3); Chloride 94 mmol/L (101-111); EGFR African American 62.6 (>60); EGFR Non-African American 51.7 (>60); Glucose 181 mg/dL (70-100); Potassium 3.7 mmol/L (3.5-5.0); Sodium 133 mmol/L (135-145)
[2020-03-30 08:42] LABS: % Iron Saturation 9 % (15-55); Iron 27 ug/dL (50-212); Total Iron Binding Capacity 301 mcg/dL (250-450); Transferrin 215 mg/dL (203-362); Unsaturated Iron Binding < 286 ug/dL
[2020-03-30 09:03] LABS: Ferritin 84.1 ng/mL (11-307)
[2020-03-30] MEDS: Iron Sucrose 200 MG in NS 0.9% 100 ml BAG 100 ML IVPB SCH (17:48)
[2020-03-30] MEDS: Nitrofurantoin (macrocrystals) 50 mg CAP PO SCH (19:49)
[2020-03-30 20:58] LABS: Folate > 20.00 ng/mL (>3.99)
[2020-03-30 20:59] LABS: Vitamin B12 > 1450 pg/mL (180-914)
[2020-03-30 21:05] LABS: Corrected Retic Count 2.8 % (0.5-1.5); Hematocrit for Retic CNT 30 % (35-47); Immature Retic Fraction 0.62; RBC Retic Count 3.47 10^6/uL (3.70-4.87)
[2020-03-30 21:14] LABS: LDH 673 U/L (140-271)
[2020-03-30 21:54] LABS: Hepatitis B Surface Antigen Nonreactive (Nonreactive)
[2020-03-30 22:01] LABS: Hepatitis A Ab IgM Negative (Negative)
[2020-03-30 22:02] LABS: Hepatitis B Core IgM Nonreactive (Nonreactive)
[2020-03-30 22:11] LABS: Hepatitis C Antibody Negative (Negative)
[2020-03-31 05:03] LABS: ABS Basophils 0.2 10^3/ul (0-0.2); ABS Eosinophils 0.2 10^3/ul (0-0.6); ABS Lymphocytes 0.9 10^3/ul (1.0-4.8); ABS Monocytes 0.4 10^3/ul (0-0.8); ABS Neutrophils 8.3 10^3/ul (1.5-7.7); ABS Nucleated RBC 0.1 10^3/ul; Eosinophil % 1.8 %; Hematocrit 30 % (35-47); Hemoglobin 10.1 g/dL (12.0-16.0); Lymphocyte % 8.9 %; Mean Corpuscular HGB Conc 34 g/dL (31-36); Mean Corpuscular Hemoglobin 29 pg (27-31); Mean Corpuscular Volume 84 fL (80-97); Mean Platelet Volume 9.2 fL (7.4-10.4); Nucleated Red Blood Cells % 0.7; Platelet Count 100 10^3/uL (150-450); Red Blood Count 3.53 10^6 /uL (3.70-4.87); Red Cell Distribution Width 21 % (10-15); White Blood Count 9.9 10^3/uL (3.5-10.8)
[2020-03-31 05:20] LABS: BUN/Creatinine Ratio 35.7 (8-20); C Reactive Protein 45.65 mg/L (<8.01); Calcium 8.6 mg/dL (8.6-10.3); EGFR African American 64.8 (>60); EGFR Non-African American 53.6 (>60); Potassium 4.2 mmol/L (3.5-5.0)
[2020-03-31 06:32] LABS: Erythrocyte Sed Rate 38 mm/Hr (0-29)
[2020-03-31 07:52] LABS: Albumin 3.5 g/dL (3.2-5.2); Albumin/Globulin Ratio 1.1 (1-3); Globulin 3.1 g/dL (2-4); Indirect Bilirubin 0.7 mg/dL (0.3-1.0); Total Bilirubin 1.1 mg/dL (0.2-1.0); Total Protein 6.6 g/dL (6.4-8.9)
[2020-03-31] MEDS: Iron Sucrose 200 MG in NS 0.9% 100 ml BAG 100 ML IVPB SCH (09:04)
[2020-03-31] MEDS: Insulin GLARGINE 100 un/ml 10 ml VIAL SUBCUT SCH (09:04)
[2020-03-31] MEDS: Nitrofurantoin (macrocrystals) 50 mg CAP PO SCH ×2 (09:10→22:28)
[2020-04-01 04:50] LABS: Hematocrit 31 % (35-47); Hemoglobin 10.3 g/dL (12.0-16.0); Mean Corpuscular HGB Conc 33 g/dL (31-36); Mean Corpuscular Hemoglobin 28 pg (27-31); Mean Corpuscular Volume 85 fL (80-97); Mean Platelet Volume 9.7 fL (7.4-10.4); Platelet Count 116 10^3/uL (150-450); Red Blood Count 3.66 10^6 /uL (3.70-4.87); Red Cell Distribution Width 21 % (10-15); White Blood Count 11.8 10^3/uL (3.5-10.8)
[2020-04-01 05:09] LABS: BUN/Creatinine Ratio 33.3 (8-20); C Reactive Protein 34.77 mg/L (<8.01); Calcium 8.7 mg/dL (8.6-10.3); EGFR African American 64.1 (>60); EGFR Non-African American 52.9 (>60); Potassium 3.7 mmol/L (3.5-5.0); Uric Acid 10.6 mg/dL (2.3-6.6)
[2020-04-01 05:58] LABS: Erythrocyte Sed Rate 30 mm/Hr (0-29)
[2020-04-01] MEDS: Nitrofurantoin (macrocrystals) 50 mg CAP PO SCH ×2 (08:11→21:48)
[2020-04-01] MEDS: Insulin GLARGINE 100 un/ml 10 ml VIAL SUBCUT SCH (08:11)
[2020-04-01] MEDS: Iron Sucrose 200 MG in NS 0.9% 100 ml BAG 100 ML IVPB SCH (09:10)
[2020-04-01 09:22] LABS: Magnesium 2.1 mg/dL (1.9-2.7)
[2020-04-01] MEDS ORDERED: Morphine 2 MG/ML SYRINGE IV ONE (09:30)
[2020-04-01] MEDS ORDERED: Lorazepam PYXIS KEY PRN (09:30)
[2020-04-01] MEDS ORDERED: LORazepam 2 mg VIAL 1 ml IV PUSH ONE (09:30)
[2020-04-01] MEDS ORDERED: Lidocaine 2% PF 5 ML VIAL INJ ONE (09:31)
[2020-04-01] MEDS ORDERED: fentaNYL 100 mcg/2 ml 50 MCG/ML VIAL ONE (14:33)
[2020-04-01] MEDS ORDERED: Midazolam 5 mg/5 ml VIAL 1 mg/ml 5 ml VIAL (5 mg) ONE (14:33)
[2020-04-01] MEDS ORDERED: Naloxone 0.4 mg VIAL 0.4 mg/ml 1 ml VIAL ONE (14:34)
[2020-04-01] MEDS ORDERED: Flumazenil 0.5 mg/5 ml 0.1 MG/ML 5 ml VIAL ONE (14:34)
[2020-04-02 06:56] LABS: BUN/Creatinine Ratio 37.2 (8-20); Calcium 8.4 mg/dL (8.6-10.3); EGFR Non-African American 45.4 (>60); Potassium 4.3 mmol/L (3.5-5.0)
[2020-04-02 06:57] LABS: Hematocrit 30 % (35-47); Hemoglobin 9.9 g/dL (12.0-16.0); Mean Corpuscular HGB Conc 33 g/dL (31-36); Mean Corpuscular Hemoglobin 28 pg (27-31); Mean Corpuscular Volume 84 fL (80-97); Platelet Count 115 10^3/uL (150-450); Red Blood Count 3.54 10^6 /uL (3.70-4.87); Red Cell Distribution Width 21 % (10-15); White Blood Count 13.5 10^3/uL (3.5-10.8)
[2020-04-02] MEDS: Insulin GLARGINE 100 un/ml 10 ml VIAL SUBCUT SCH (08:18)
[2020-04-02] MEDS: Nitrofurantoin (macrocrystals) 50 mg CAP PO SCH ×2 (09:04→19:56)
[2020-04-02] MEDS: Iron Sucrose 200 MG in NS 0.9% 100 ml BAG 100 ML IVPB SCH (09:06)
[2020-04-02 17:44] LABS: BUN/Creatinine Ratio 41.7 (8-20); Calcium 8.8 mg/dL (8.6-10.3); EGFR African American 53.9 (>60); EGFR Non-African American 44.5 (>60); Potassium 4.3 mmol/L (3.5-5.0)
[2020-04-03 07:01] LABS: BUN/Creatinine Ratio 43.3 (8-20); Calcium 8.8 mg/dL (8.6-10.3); EGFR African American 51.3 (>60); EGFR Non-African American 42.4 (>60)
[2020-04-03] MEDS: Nitrofurantoin (macrocrystals) 50 mg CAP PO SCH ×2 (08:52→20:54)
[2020-04-03] MEDS: Insulin GLARGINE 100 un/ml 10 ml VIAL SUBCUT SCH (08:52)
[2020-04-03] MEDS: Iron Sucrose 200 MG in NS 0.9% 100 ml BAG 100 ML IVPB SCH (09:14)
[2020-04-04 06:14] LABS: Hematocrit 30 % (35-47); Mean Corpuscular HGB Conc 34 g/dL (31-36); Mean Corpuscular Hemoglobin 28 pg (27-31); Mean Corpuscular Volume 84 fL (80-97); Mean Platelet Volume 8.2 fL (7.4-10.4); Platelet Count 109 10^3/uL (150-450); Red Blood Count 3.53 10^6 /uL (3.70-4.87); Red Cell Distribution Width 20 % (10-15); White Blood Count 11.1 10^3/uL (3.5-10.8)
[2020-04-04 06:34] LABS: BUN/Creatinine Ratio 47.1 (8-20); Calcium 8.5 mg/dL (8.6-10.3); EGFR African American 61.9 (>60); EGFR Non-African American 51.1 (>60); Magnesium 1.6 mg/dL (1.9-2.7); Potassium 4.1 mmol/L (3.5-5.0)
[2020-04-04] MEDS: Nitrofurantoin (macrocrystals) 50 mg CAP PO SCH (08:09)
[2020-04-04] MEDS: Insulin GLARGINE 100 un/ml 10 ml VIAL SUBCUT SCH (08:09)
[2020-04-04] MEDS: Iron Sucrose 200 MG in NS 0.9% 100 ml BAG 100 ML IVPB SCH (09:10)
[2020-04-04] MEDS ORDERED: Magnesium Sulfate IV 3 GM in NS 0.9% 100 ml BAG 100 ML IVPB ONE (13:59)
[2020-04-04] MEDS ORDERED: Nitrofurantoin (monohydrate/macrocrystals) 100 mg CAP PO ONE (17:00)
[2020-04-05 07:38] VITALS: BP 102/56
[2020-04-05] MEDS: Insulin GLARGINE 100 un/ml 10 ml VIAL SUBCUT SCH (08:47)
[2020-04-14 16:11] LABS: BM Chromosome Source LPIC
== END 2020-04-05 09:30 | DRG 840 ==
LOC: ED 17:24 → MEDTELE 17:24
PROVIDERS: ADMIT Hospitalist; ATTEND Internal Medicine